=== PATIENT | female | born 1950 | race Caucasian/White ===

== ENCOUNTER → 2018-11-18 | Outpatient (CLI) | payer OTHER ==
[~2018-11-18] MED LIST: FLEXERIL PO; MOBIC7.5 MG PO; MYSOLINE250 M1 PO
== END ==
LOC: M.RAD 12:16
DX: Z12.31 Encounter for screening mammogram for malignant neoplasm of breast (principal)

== ENCOUNTER → 2018-11-30 | Outpatient (CLI) | payer OTHER | LOC: M.RAD 11-28 09:04 | DX: R92.2 Inconclusive mammogram (principal) ==

== ENCOUNTER → 2018-12-06 | Outpatient (CLI) | payer OTHER ==
[~2018-12-06] MED LIST changes: +BIOTIN1 MG PO; +CALCIUM 500 +1 EAC5 PO; +TRAMADOL 50 MG50 MG PO
--- NOTE | 2018-12-23 14:08 | PATH ---
[address] [address] PATHOLOGY RPT PROCEDURE Name: MERYL ORDONEZ Room: [facility] Han#: [id number] Admission: 12/06/18 Date of : 52 Discharge: Report #: [id number] Path Case #: [id number] [facility] Accession Number: [id number] . 01 Material submitted: . RIGHT BREAST MASS BIOPSY . 01 Clinician provided ICD-10: y . 01 Clinical history: . 0.94 x 0.93 x 2.2 cm right breast mass, 7:00, SA . 02 Diagnosis: Right breast mass, 7:00, subareolar, image-guided core biopsies: - DUCTAL CARCINOMA IN SITU (DCIS), NUCLEAR GRADE III, COMEDO AND CRIBRIFORM TYPES, WITH PROMINENT LOBULAR CANCERIZATION, SPANNING AT LEAST 7 MM. SEE COMMENT. (PAULINE:dharmesh; 12/09/2018) MBR/12/09/2018 . 02 Comment: Each of the tissue cores shows DCIS with scattered luminal calcifications noted and in association with non-neoplastic breast tissue which has an atrophic appearance, also noted to contain luminal calcifications. Foci of sclerosis are also present. A panel of properly controlled immunohistochemical stains are performed on blocks A1 through A3 with results as follows supporting a noninvasive process: . A1: P63: Positive [facility]: Positive . A2: P63: Positive [facility]: Positive Calponin: Positive . A3: P63: Positive [facility]: Positive . In A2, there is noted to be a focus of perineural "entrapment" of benign breast tissue. Estrogen and progesterone receptor studies will be performed on A2 and will be the subject of an addendum report. . Brie Barker (acting [facility] breast navigator) notified at approximately 1415 on 12/09/2018. Reviewed with Dr. Candice Woods [place] [address] PATHOLOGY RPT PROCEDURE Name: MERYL ORDONEZ Room: [facility]#: [id number] Admission: 12/06/18 Date of : 52 Discharge: Report #: [id number] Path Case #: [id number] diagnosis. . (PAULINE:chief information officer; 12/09/2018) . 02 Addendum: . Special studies report received from [facility], [address] [place] [address], [address], [place], [address], on case [id number], labeled with their number [id number], dated 12/22/2018. . Breast/Prognostic Marker Analysis . Specimen Site: Right Breast, Mass, 7:00 (Biopsy), Ductal Carcinoma In Situ (DCIS) Specimen ID #: [id number] . . ER (Estrogen Receptor) Absent/Negative Percent: 0.00 Analysis: Manual Comments: Adequate external and internal positive controls are noted. . AZ (Progesterone Receptor) Absent/Negative Percent: 0.00 Analysis: Manual Comments: Adequate external and internal positive controls are noted. . Time to Fixation (Cold Ischemic Time): Less than 1 minute Duration of Fixation: Greater than 7 hours and less and 72 hours Type of Fixative: 10% Neutral Buffered Formalin . Comments: Prognostic groupings are reported only for invasive primary breast carcinomas. Please disregard the reference ranges to the right. . at [employer]. Ramses Fitzgerald M.D. Pathologist . Methodology A rabbit monoclonal antibody (clone SP1) that recognized the Estrogen Receptor is used to perform immunohistochemistry on routinely fixed (formalin) paraffin embedded tissue on the [place] [employer]. The specimen is processed using a polymer detection system. The percentage of stained tumor nuclei is determined either manually or by image analysis. This test is intended for in vitro diagnostic use. This test is used [place] [address] PATHOLOGY RPT PROCEDURE Name: JOSÉ LUISMERYLMAREK SCHULZ Room: [facility] Han#: [id number] Admission: 12/06/18 Date of : 52 Discharge: Report #: [id number] Path Case #: [id number] . A rabbit monoclonal antibody (clone 1E2) that recognized the Progesterone Receptor is used to perform immunohistochemistry on routinely fixed (formalin) paraffin embedded tissue on the [place] [employer]. The specimen is processed using a polymer detection system. The percentage of stained tumor nuclei is determined either manually or by image analysis. This test is intended for in vitro diagnostic use. This test is used for clinical purposes. . Intended Use: This antibody is intended for in vitro diagnostic (IVD) use. Estrogen Receptor (ER) (SP1) is a rabbit monoclonal antibody (IgG) that is intended for the qualitative detection of estrogen receptor (ER) antigen in sections of formalin-fixed, paraffin-embedded tissue. ER is a rabbit monoclonal antibody that recognizes human estrogen receptor alpha. . This antibody is intended for in vitro diagnostic (IVD) use. Progesterone Receptor (AZ) (1E2) is a rabbit monoclonal antibody (IgG) that is intended for the qualitative detection of progesterone receptor (AZ) antigen in sections of formalin fixed, paraffin embedded tissue. AZ is a rabbit monoclonal antibody that recognizes the A and B forms of the human progesterone receptor. . Disclaimer: This Test was performed by [employer]. at [address] [place] [address], [address]. . [employer] is a business unit of [employer]. a wholly-owned subsidiary of [employer] . This assay has not been validated on decalcified tissues. Results should be interpreted with caution if this specimen was decalcified given the likelihood of false negativity on decalcified specimens. . Any image(s) that accompany this report is/are a termite control service representative image(s) only and should not be used to render a diagnosis. . This interpretation is contingent on the specimen and the clinical information received. . For any special tests/stains performed, known positive cells or tissues are tested with each marker and examined to ensure positivity. Positive and negative internal controls, if present, react appropriately. . This analysis is an adjunct to the evaluation of the referring physician and does not represent a final diagnosis. . The immunohistochemistry tests [place] [address] PATHOLOGY RPT PROCEDURE Name: MERYL ORDONEZ Room: [facility].#: [id number] Admission: 12/06/18 Date of : 52 Discharge: Report #: [id number] Path Case #: [id number] Light Extraction. were validated on tissue fixed in 10% neutral buffered formalin. The performance characteristics of the tests performed on tissue processed in other fixatives is not known. . . ER/AZ ASCO/CAP guidelines require fixation in neutral buffered formalin for a minimum of 6 and a maximum of 72 hours. Fixation times less than 6 hours may not adequately preserve cell proteins. Fixation times longer than 72 hours may cause excess cross-linking of proteins reducing the antigen available for staining. Either scenario can cause reduced staining; hence false negative results are possible and should be considered for these situations. The time from biopsy/excision to fixation in formalin (cold ischemic time) must be less than 1 hour. Time to fixation (cold ischemic time) greater than 1 hour should be interpreted with caution. REF: Deedee Farr, et al. [place] Society of Clinical Oncology/College of [place] Pathologists Guideline Recommendations for Immunohistochemical Testing of Estrogen and Progesterone Receptors in Breast Cancer. J Clin Oncol. 2010 April 22; 28(16): 5497-3711. . A complete copy of the report is on file. . Professional and Technical services performed by [employer]. at [address], [place] [address]. . (AMJ 12/22/2018) . LBQ/12/22/2018 Addendum Electronically Signed by Surya Tillman MD, Pathologist . 02 Electronically signed: . Surya Tillman MD, Pathologist NPI- [id number] . 01 Gross description: . Received in formalin labeled "Meryl Ordonez, right breast BX 700 SA," are multiple needle cores of yellow-wall fibrofatty tissue measuring 1.3 x 0.6 x 0.2 cm in aggregate dimensions. The tissue is submitted in its entirety in cassettes A1 through A3. The cold ischemic time is 1 minute. The total formalin fixation time is greater than 7 hours and less than 72 hours. (TSD; 12/06/2018) TOB/TOB . 02 Pathologist provided ICD-10: D05.11 . 02 CPT . 717901, Z43432, R75442 Performed at: [place] [address] PATHOLOGY RPT PROCEDURE Name: MERYL ORDONEZ Room: [facility]#: [id number] Admission: 12/06/18 Date of : 52 Discharge: Report #: [id number] Path Case #: [id number] [address] [address], [place], [place] [id number] MD Ildefonso Broderick MD Phone: [phone] Performed at: 02 [facility] [address], [place], [place] [id number] MD Surya Tillman MD Phone: [phone]
== END | disposition home or self-care (01) ==
LOC: M.ULTRA 08:08
DX: D05.11 Intraductal carcinoma in situ of right breast (principal); Z88.0 Allergy status to penicillin; Z88.2 Allergy status to sulfonamides; Z88.8 Allergy status to other drugs, medicaments and biological substances; Z79.899 Other long term (current) drug therapy

== ENCOUNTER → 2018-12-23 | Outpatient (CLI) | payer MEDICARE ==
[~2018-12-23] MED LIST changes: -BIOTIN1 MG PO; -CALCIUM 500 +1 EAC5 PO; -TRAMADOL 50 MG50 MG PO
--- NOTE | ~2018-12-23 | ONC ---
[address] [address] RADIATION ONCOLOGY NOTE Name: SALVADOR ORDONEZ Room: [facility].#: [id number] Admission: 12/23/18 Attend Phys: Filiberto Cedeno MD Discharge: Date of : 52 Report #: [id number] THIS REPORT FOR: //name// CC: Filiberto Deal DATE OF SERVICE: 12/23/2018 REFERRING PHYSICIANS: Include Dr. Breonna Deal, also Dr. Danna Cruz. [facility] phone is [phone]. PRIMARY SITE AND HISTOPATHOLOGY: The patient had a ductal carcinoma in situ of the right breast. It was nuclear grade 3 and was estrogen receptor negative, progesterone receptor negative. HISTORY OF PRESENT ILLNESS: The patient had a routine bilateral screening mammogram on 11/18/2018, which revealed an increased density in the upper outer right breast and then they went ahead and did an ultrasound on 11/30/2018, which revealed a hypoechoic focus in the subareolar region of the right breast that measured about 1 x 1.8 cm. Imaging of the axilla was unremarkable. She had a biopsy of that area on 12/06/2018. The pathology revealed a ductal carcinoma in situ, nuclear grade 3 was comedo and cribriform types. Estrogen receptor negative and progesterone receptor negative. She denied having any palpable mass in that area or any nipple discharge and she presents to discuss treatment options. PAST MEDICAL HISTORY: She says she has a history of seizures and history of bronchitis. MEDICATIONS: Primidone and then, she takes vitamin supplements. ALLERGIES: ARE TO PENICILLIN, SULFA, DEMEROL, TEGRETOL. SHE SAYS THAT PREDNISONE HAS CAUSED HER TO GET A LITTLE ITCHY, SO SHE DOES NOT TOLERATE IT TOO WELL. PAST SURGICAL HISTORY: She had a tonsillectomy and adenoidectomy in 1954. She had impacted wisdom teeth removed in 1975. She had a hymenectomy in 1977. She had a right lumpectomy in 1982and that was benign. She had an operation on that looks like an anal fissure in 1987. OBSTETRICS AND GYNECOLOGIC HISTORY: She is 0, para 0, menarche at age 14, menopause at age 56. FAMILY HISTORY: [place] [address] RADIATION ONCOLOGY NOTE Name: SALVADOR ORDONEZ Room: [facility]#: [id number] Admission: 12/23/18 Attend Phys: Filiberto Cedeno MD Discharge: Date of : 52 Report #: [id number] SOCIAL HISTORY: She is . Her of prostate cancer. Cigarettes, She does not smoke cigarettes. REVIEW OF SYSTEMS: GENERAL: She said she has some mild weight loss recently. SKIN: She has some bruising in the area where she had the biopsy of the breast. LYMPH NODES: She had no enlarged or painful glands. ENDOCRINE: She denied having any hot or cold intolerance. HEMATOLOGY AND IMMUNOLOGY: She denied having any anemia. MUSCULOSKELETAL: She has arthritis. She does have back pain. HEAD AND NECK: She does have chronic tinnitus. RESPIRATORY: She denied having any shortness of breath. CARDIOVASCULAR: She denied having palpitations. GASTROINTESTINAL: She stated that depending on what she eats, she states sometimes she will have diarrhea, which resolves on its own. NEUROLOGIC: She has had no seizures in 38 years, but prior to that, did have a history of seizure disorder. PHYSICAL EXAMINATION: With my nurse, Malu Fernandez, present: VITAL SIGNS: Height 4 feet 11 inches, weight 93.6 pounds, blood pressure 131/71, pulse 98, oxygen saturation 99%, respirations 18. GENERAL: The patient was alert and oriented, in no acute distress. LYMPH NODES: She had no cervical, supraclavicular or axillary lymphadenopathy. EYES: Pupils are equal, round, reactive to light and accommodation. Extraocular movements are intact. HEAD, EARS, NOSE AND THROAT: Mouth had no visible lesions. HEART: Had a regular rate and rhythm without murmur. LUNGS: Clear to auscultation. BREASTS: Right breast had no suspicious palpable masses. Left breast had no suspicious palpable masses. ABDOMEN: Nontender. Spleen was not palpable. Liver was at the costal margin. EXTREMITIES: Had no clubbing, cyanosis or edema. NEUROLOGIC: Cranial nerves 2-12 are intact. Sensation was intact. She had 4/5 strength throughout. ASSESSMENT AND PLAN: The patient has right now an apparent high-grade ductal carcinoma in situ that is estrogen receptor negative, progesterone receptor negative. The patient was told that her treatment options are breast conservation therapy versus mastectomy. Cosmetically, since this is subareolar, I told the patient can discuss with surgeon what is feasible cosmetically in this case. She was told if she does self-breast conservation therapy that radiation can further reduce her chance of recurrent cancer in the breast. With the high grade cancers, the recurrence rate can be found in the article entitled pathologic findings from the National Surgical Adjuvant Breast Project update of protocol B-17 and for the high grade cancers, the recurrence rate at 8 years was 40% without radiation therapy versus 14% with radiation therapy [place] [address] RADIATION ONCOLOGY NOTE Name: SALVADOR ORDONEZ Room: [facility]#: [id number] Admission: 12/23/18 Attend Phys: Filiberto Cedeno MD Discharge: Date of : 52 Report #: [id number] hand, if she does undergo mastectomy and she has clear margins, there probably would not be any role for radiation therapy at that point. I will also refer her to the medical oncologist, Dr. Michael washington to check about if there is a role for genetic analysis since her father, sister had breast cancer. When I spoke to Dr. Cruz's staff, it appears that her surgery will probably in the next week or 2, so we will ask the patient to return for followup probably in the next month or so to go over the pathology and then see what the role of adjuvant therapy would be depending what type of surgery she ended up having and what her pathology showed. Thank you very much for this consultation. By: [id number] Cedeno MD /nt
== END ==
LOC: M.RTH 03:26
DX: D05.01 Lobular carcinoma in situ of right breast (principal); Z79.899 Other long term (current) drug therapy

== ENCOUNTER 2019-01-05 06:22 | Observation (INO) | payer OTHER ==
[~2019-01-05] VITALS: Ht 149.9 cm; Wt 42.6 kg
[~2019-01-05 06:22] MED LIST changes: +BIOTIN1 MG PO; +CALCIUM 500 +1 EAC5 PO
[2019-01-05 06:50] LABS: HEMATOCRIT 42.4 % (37.0-47.0); HEMOGLOBIN 13.9 gm/dL (12.0-15.0); MCH 31.8 pg (26.0-34.0); MCHC 32.7 g/dL (28.0-37.0); MCV 97.1 fL (80.0-100.0); RBC 4.37 mil/uL (4.20-5.00); RDW-CV 12.8 % (10.5-14.5); WBC 8.5 thou/uL (4.0-11.0)
[2019-01-05 06:57] LABS: CALCIUM 8.7 mg/dL (8.5-10.1); POTASSIUM 3.3 mmol/L (3.5-5.1)
[2019-01-05 08:31] VITALS: BP 115/63
[2019-01-05 12:31] VITALS: BP 133/72
--- NOTE | 2019-01-05 13:12 | EKG ---
[place] [address] ELECTROCARDIOGRAM REPORT Name: SALVADOR ORDONEZ Room: [address] M.R.#: [id number] Admission: 01/05/19 Attend Phys: Danna Cruz DO Discharge: Date of : 52 Report #: [id number] THIS REPORT FOR: //name// [facility] Test Date: 2019-01-05 Test Time: 07:35:45 Pat Name: SALVADOR ORDONEZ Department: Room: [facility] Gender: F Statistical Typist: : 1950 Requested By: Danna Cruz Order Number: [id number] Scarlett MD: Oscar Burns Measurements Intervals Equality Rate: 82 P: 30 OK: 121 QRS: 57 QRSD: 77 T: -2 QT: 358 QTc: 418 Interpretive Statements Sinus rhythm Borderline T wave abnormalities No previous ECG available for comparison Electronically Signed On 01-05-2019 13:12:34 FULL STACK PYTHON DEVELOPER by Oscar Burns [email or web address] <ELECTRONICALLY SIGNED> By: Oscar Burns MD, [facility] 01/05/19 1312 0735 0735 Oscar Burns MD, FACC /EPI
[2019-01-05 13:30] VITALS: BP 130/65
[2019-01-05 17:34] VITALS: BP 142/70
[2019-01-05 20:00] VITALS: BP 121/74
[2019-01-06 08:05] VITALS: BP 132/75
[2019-01-06 14:00] VITALS: BP 121/74
[2019-01-06 20:18] VITALS: BP 116/65
[2019-01-07 08:00] VITALS: BP 109/72
[2019-01-07 10:08] LABS: PRIMIDONE 11.6 ug/mL (5.0-12.0)
[2019-01-07] MEDS ORDERED: TRAMADOL 50 MG50 MG PO (11:09)
[2019-01-07 11:13] VITALS: BP 116/65
--- NOTE | 2019-01-13 11:09 | PATH ---
[address] [address] PATHOLOGY RPT PROCEDURE Name: SALVADOR ORDONEZ Room: [address] Elio Han#: [id number] Admission: 01/05/19 Date of : 52 Discharge: 01/07/19 Report #: [id number] Path Case #: [id number] [facility] Accession Number: [id number] . 01 Material submitted: . PART A: RIGHT SENTINEL LYMPH NODE PART B: RIGHT BREAST . 01 Clinical history: . Right breast DCIS. . 02 Diagnosis: A. "Right axillary sentinel lympho node", biopsy: - Two lymph nodes with no evidence of carcinoma (0/2). - Cytokeratin immunoperoxidase stain is negative on blocks A1 and A2. . B. Breast, right, simple mastectomy: - DUCTAL CARCINOMA IN SITU, COMEDO AND CRIBRIFORM TYPES, NUCLEAR GRADE III (HIGH GRADE), WITH CANCERIZATION OF THE LOBULES. - DCIS occupies a span of 2.9 cm and is associated with extensive sclerosing adenosis. - Margins of excision: Negative; ductal carcinoma in situ is located a minimum of 0.4 cm away from closest (anterior) margin. . (Please see comment and synoptic report) S/01/12/2019 . 02 Comment: No evidence of invasive carcinoma is seen in blocks B11, B12, B13, B14, and B16 with the p63 and smooth muscle myosin immunoperoxidase stains. These stains show preservation of a myoepithelial cell layer in association with the proliferative epithelium. (SKM:cindy; 01/12/2019) . SYNOPTIC REPORT: . Procedure: Simple mastectomy Specimen Laterality: Right Size of DCIS: 29 mm Architectural Patterns: Cribriform and comedo Nuclear Grade: III Necrosis: Present (expansive comedo necrosis) Margins: Uninvolved by DCIS - Distance From Closest Margin: 4 mm - Specify closest margin - anterior Regional Lymph Nodes: Uninvolved by tumor cells - Number of lymph nodes examined: 2 - Number of sentinel lymph nodes examined: 2 [place] [address] PATHOLOGY RPT PROCEDURE Name: JOSÉ LUISSALVADORMAREK SCHULZ Room: [address] [place] Han#: [id number] Admission: 01/05/19 Date of : 52 Discharge: 01/07/19 Report #: [id number] Path Case #: [id number] Pathologic Staging: - Primary tumor: pTis (DCIS) - Regional lymph nodes: pN0 (no regional lymph node metastasis identified) Microcalcifications: Present in association with DCIS and benign ductal epithelium Breast Prognostic Markers: Performed on previous specimen [id number]. Results: Estrogen-negative, progesterone-negative . (SKM:cindy; 01/12/2019) . 02 Electronically signed: . Marito Rowe MD, Pathologist NPI- [id number] . 01 Gross description: . A. Received in formalin labeled "Salvador Ordonez, right axillary sentinel lymph node" are two pink-correia possible lymph nodes measuring 0.6 x 0.5 x 0.3 cm and 2.0 x 1.1 x 0.5 cm. The lymph nodes are serially sectioned and submitted entirely in cassette A1-A2. . B. Received in formalin labeled "Salvador Ordonez, right breast suture mcclure axillary tail" is a 151 g simple mastectomy specimen which measures 11.7 cm from medial to lateral, 10.5 cm from superior to inferior, and 3.5 cm from anterior to posterior. The anterior aspect displays an ellipse of correia-white skin measuring 9.8 x 2.3 x 0.4 cm. The skin does not have induration or retraction. A centrally located inverted nipple is present measuring 0.7 x 0.7 x 0.1 cm. The posterior fascia is present, without puckering. The specimen is inked as follows: Superior half of anterior-blue, inferior half of anterior-green, posterior-black. The specimen is serially sectioned from medial to lateral to reveal a correia-white firm possible lesion in the lower outer quadrant at 7:00, 1.0 cm from the nipple. This area measures 2.9 cm from medial to lateral, 2.1 cm from superior to inferior, and 1.6 cm from anterior to posterior. This area is located to the margins as follows: 3.3 cm to lateral, 5.1 cm to medial, 7.9 cm to superior, 2.0 cm to inferior, 0.4 cm to anterior, and 1.1 cm to posterior. A biopsy cavity is grossly identified, which contains correia-white hard biopsy material. A clip is not grossly identified. The uninvolved breast parenchyma is yellow and lobulated with 10% dense white fibrous tissue. No additional nodules or other abnormalities are identified. No lymph nodes are identified. Test Facility Engineer sections of the specimen are submitted as follows: B1 upper outer quadrant B2 lower outer quadrant B3 lower inner quadrant B4 upper inner quadrant B5 branch sales and service representative skin closest to lesion B6 nipple, serially sectioned B7 deep margin closest to lesion B8 uninvolved tissue [place] [address] PATHOLOGY RPT PROCEDURE Name: SALVADOR ORDONEZ Room: [address] [place] Han#: [id number] Admission: 01/05/19 Date of : 52 Discharge: 01/07/19 Report #: [id number] Path Case #: [id number] B9 lateralmost slice of lesion B10-B11 next slice B12 next slice B12 next slice B13 next slice B14 next slice B15-B16 next slice B17 next slice B18 medialmost slice of lesion B19 uninvolved tissue directly medial to lesion The specimen is from a patient at 1002 and placed in formalin at 1022 on January 05, 2019. The specimen is removed from formalin 2340 on January 05, 2019. ([facility]; 01/05/2019) SYC/SYC . 02 Pathologist provided ICD-10: D05.11 . 02 CPT . 015891, 686326 Specimen Comment: A courtesy copy of this report has been sent to Specimen Comment: [phone], . Specimen Comment: Report sent to / DR NUNES Specimen Comment: A duplicate report has been generated due to demographic updates. Performed at: 01 [facility] [address] [id number] MD Ildefonso Broderick MD Phone: [phone] Performed at: 02 [facility] [address] [id number] MD Aquiles Stuart MD Phone: [phone]
--- NOTE | 2019-01-17 07:35 | OP ---
[address] [address] OPERATIVE REPORT Name: SALVADOR ORDONEZ Room: [address] Elio Han#: [id number] Admission: 01/05/19 Attend Phys: Danna Cruz DO Discharge: 01/07/19 Date of : 52 Report #: [id number] THIS REPORT FOR: //name// CC: Danna Ravi Deal DATE OF SERVICE: 01/05/2019 PREOPERATIVE DIAGNOSIS: Right breast high-grade DCIS. POSTOPERATIVE DIAGNOSIS: Right breast high-grade DCIS. PROCEDURE: Right simple mastectomy with sentinel lymph node biopsy. SURGEON: Danna Cruz DO. ANESTHESIA: General endotracheal. ESTIMATED BLOOD LOSS: 100 mL. FIRER GLOST KILN: resident Willie. SPECIMENS: 1. Right breast with stitch marking axillary tail. 2. Right axillary sentinel lymph nodes. COMPLICATIONS: None. INDICATION FOR PROCEDURE: The patient is a 68-year-old female who was seen and evaluated for high-grade DCIS of the right breast. After discussion with Oncology as well as the patient, it was recommended to undergo a right breast mastectomy with sentinel lymph node biopsy due to increased risk of invasive cancer on final pathology. The patient was explained the procedure including risks, benefits and alternatives. All questions were answered to the patient's satisfaction, informed consent was obtained. DESCRIPTION OF PROCEDURE: After the patient was brought back to the operating room and placed in the supine position, general anesthesia was induced. SCDs were placed in bilateral lower extremities and prophylactic antibiotics were administered. Next, after the area was prepped and draped in the usual sterile fashion, an elliptical incision was created from the right of the sternum to the axillary fold. Using a scalpel, dissection was carried down to the subcutaneous tissues using Bovie cautery. First, a skin flap was created between the breast tissue and the subcutaneous tissues on the superior flap. This was performed using Bovie cautery. Hemostasis was achieved along the way. Once the pectoralis fascia was encountered just inferior to the clavicle, [place] [address] OPERATIVE REPORT Name: SALVADOR ORDONEZ JAZZ Room: [address] Elio Han#: [id number] Admission: 01/05/19 Attend Phys: Danna Cruz DO Discharge: 01/07/19 Date of : 52 Report #: [id number] then turned towards making the inferior flap. The skin was then grasped with a Aguilar retractor, and the inferior breast flap was created in a similar fashion creating the dissection plane between the breast tissue and the subcutaneous tissues until pectoralis fascia was identified. Dissection was then carried out laterally until the latissimus dorsi was identified. The breast was then removed from the pectoralis fascia in a medial to lateral fashion using Bovie cautery. Hemostasis was achieved along the way using Bovie cautery. Next, once the breast was dissected laterally, the axillary tail was dissected and the specimen was placed on the back table and marked with the axillary tail with a stitch and sent for pathology. The patient had preoperatively been injected with technetium-99 by Radiology as well as Lymphazurin blue which was massaged into the breast. At this time, the axillary contents were identified using a gamma probe. Two sentinel lymph nodes were identified and isolated. These were circumferentially dissected free bluntly with an index finger as well as with a Palak clamp. Once the sentinel lymph nodes were isolated, hemostasis was noted to be excellent. These lymph nodes were then sent for a second specimen labeled right axillary lymph nodes. The axillary contents were again probed. There was noted to be no further palpable lymph nodes and no further hot lymph nodes noted with the gamma probe. Next, the surgical site was copiously irrigated with sterile water. Hemostasis was noted to be excellent. A 15-Japanese SHAW drain was then placed within the mastectomy flap and brought out through the lateral inframammary fold. The skin was then reapproximated in interrupted fashion using 3-0 Vicryl. Next, the skin was then closed in the deep dermal layer. Next, the skin was then closed with a 4-0 Monocryl in a subcuticular manner. The area was then cleaned. Dermabond was applied for sterile dressing, 4 x 4s, fluffs, and tape were then applied. The patient tolerated the procedure well without any complications. All sponge, needle and instrument count was reported as correct at the end of the case. She was awakened from anesthesia in the operating room and taken to PACU in stable condition for further recovery. <ELECTRONICALLY SIGNED> By: Danna Cruz DO 01/17/19 [id number] Cruz DO /nt
== END 2019-01-07 18:46 | disposition home or self-care (01) ==
LOC: M.SUR 06:22 → M.ORTHSURG 11:05 → M.TBA 11:05 → M.SUR 11:28 → M.ORTHSURG 11:37 → M.SUR 12:40 → M.ORTHSURG 01-07 18:46
PROVIDERS: Family Medicine; ADMIT Surgery
DX: D05.11 Intraductal carcinoma in situ of right breast (principal); F41.9 Anxiety disorder, unspecified; Z88.8 Allergy status to other drugs, medicaments and biological substances

== ENCOUNTER → 2021-05-06 | Outpatient (CLI) | payer OTHER ==
[~2021-05-06] MED LIST changes: +TRAMADOL 50 MG50 MG PO
== END ==
LOC: M.CT 08:00
PROVIDERS: ATTEND Family Medicine
DX: Z13.6 Encounter for screening for cardiovascular disorders (principal)